=== PATIENT | female | born 1970 | race American Indian/Alaskan Native ===

== ENCOUNTER 2019-02-20 14:27 | Outpatient (CLI) | payer OTHER | END 2019-02-20 14:28 | disposition home or self-care (01) | LOC: LABHHL 14:27 | PROVIDERS: ATTEND Surgery | DX: C50.911 Malignant neoplasm of unspecified site of right female breast (principal); N60.91 Unspecified benign mammary dysplasia of right breast | CPT/HCPCS: 88305; 88341; 88342; 88361 ==

== ENCOUNTER 2019-03-11 10:47 | Outpatient (CLI) | payer OTHER ==
--- NOTE | 2019-03-13 08:44 | Magnetic Resonance Report ---
BILATERAL BREAST MR WITHOUT AND WITH GADOLINIUM INDICATION: Newly diagnosed right breast cancer. She underwent a right stereotactic biopsy of calcif ications on 02/20/2019. Pathology revealed invasive carcinoma, ER, VA positive and HER-2 negative. 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 COMPARISONS: 01/07/2019, 01/31/2019 and 02/20/2019 mammograms TECHNIQUE: Axial 1.0 mm T1 without, axial high-resolution 2.0 mm T2 and axial 1.0 mm dynamic vibrant high-resolution postcontrast T1 fat saturation sequences on a 1.5 Jelena magnet. Examination was perfo rmed with an 8-channel dedicated [place] breast coil. Postprocessing with CAD and subtraction was performed on an [employer] workstation. 19.0 cc of MultiHance was injected without incident for the contr ast portion of the exam. Consent was obtained prior to the administration of the contrast. FINDINGS: RIGHT BREAST: Marked background parenchymal enhancement. A biopsy clip is identified at 12:00 approxi mately 3 cm from the nipple and it correlates with the recently diagnosed cancer. An adjacent postbio psy seroma measures 2.0 x 2.5 x 1.0 cm. Numerous suspicious solid enhancing masses. Lesion 1 is an ov al enhancing mass in the lower outer quadrant 6.2 cm from the nipple measuring 2.2 x 1.4 x 1.0 cm. It demonstrates heterogeneous enhancement with mixed kinetics and 23% type III washout. Lesion 2 is an oval enhancing mass in the lower outer quadrant 4.9 cm from the nipple measuring 7 x 9 x 6 mm. Lesio n 3 is an oval enhancing mass in the lower outer quadrant 3.6 cm from the nipple measuring 9 x 7 x 5 mm. It demonstrates heterogeneous enhancement with mixed kinetics and 63% type III washout. Lesion 4 is an irregular enhancing mass in the lower inner quadrant 4.9 cm from the nipple measuring 12 x 9 x 8 mm. It demonstrates heterogeneous enhancement with mixed kinetics and 32% type III washout. Several additional smaller suspicious masses with a similar enhancement pattern as to all of these lesions. No suspicious right axillary or right internal mammary lymph nodes. LEFT BREAST: Marked background parenchymal enhancement. Numerous suspicious enhancing masses. An irre gular enhancing mass in the upper outer quadrant 4.2 cm from the nipple (lesion 5) correlates with th e area of previous surgical excision where there is spiculation and architectural distortion. This ma ss measures 3.1 x 2.2 x 1.3 cm and demonstrates heterogeneous enhancement with mixed kinetics and 21% type III washout. Lesion 6 is an irregular enhancing mass in the upper outer quadrant 2.7 cm from th e nipple measuring 2.5 x 2.0 x 2.1 cm. It demonstrates heterogeneous enhancement with mixed kinetics and 9% type III washout. Several additional smaller suspicious masses with similar enhancement charac teristics. No suspicious left axillary or left internal mammary lymph nodes. IMPRESSION: Numerous bilateral highly suspicious breast masses which would be amenable to MRI guided needle biopsy. No distinct MRI lesion is identified at the site of the recent right stereotactic biop sy which confirmed invasive cancer. No suspicious lymph nodes. FINAL ASSESSMENT: 6--Known Cancer Signer Name: Williams Ocampo MD Signed: 03/13/2019 8:40 AM Workstation Name: [id number]
== END 2019-03-11 10:48 | disposition home or self-care (01) ==
LOC: SPVIMAG 10:47
PROVIDERS: ATTEND Surgery
DX: C50.211 Malignant neoplasm of upper-inner quadrant of right female breast (principal); I10 Essential (primary) hypertension; Z90.710 Acquired absence of both cervix and uterus
CPT/HCPCS: A9577; C8908; 77049

== ENCOUNTER 2019-03-25 14:44 | Outpatient (CLI) | payer OTHER ==
--- NOTE | 2019-03-26 08:28 | Ultrasound Report ---
ULTRASOUND-GUIDED NEEDLE CORE BIOPSY 2 SITES LEFT BREAST WITH CLIP PLACEMENT CLINICAL: Numerous breast masses and history of surgical excision with at least 30 papillomas identif ied on the surgical path. Recent MRI demonstrated 2 numerous to count masses. FINDINGS: The procedure was explained to the patient and informed consent was obtained. Ultrasound demonstrated the previously identified masses and I chose to biopsy 2 of the larger masses at 12:00 2 cm from the nipple and at 2:00 5 cm from the nipple. A marker breast with a felt tip marker and a timeout was called. The skin was prepped with Chloro-Pre p and anesthetized with 1% lidocaine. Needle core biopsies were performed through small dermatotomies using ultrasound guidance, 2% lidocai ne with epinephrine for deep anesthesia and 14-gauge Achieve biopsy devices. 3 cores were obtained ea ch lesion and placed in formalin. A clip was deployed within each lesion. The patient tolerated the procedure well and there were no apparent convocations. Hemostasis was achi eved with minimal effort and sterile dressings were applied. Postprocedure mammogram was deferred since she is returning for biopsies of the opposite breast in a few days. She left the department in good condition and was given instructions for wound care and fol low-up. IMPRESSION: Uncomplicated ultrasound guided needle core biopsy with clip placement 2 sites left breas t. Signer Name: Williams Ocampo MD Signed: 03/26/2019 8:23 AM Workstation Name: [id number]
== END 2019-03-25 14:45 | disposition home or self-care (01) ==
LOC: SPVWC 14:44
PROVIDERS: ATTEND Surgery
DX: D24.2 Benign neoplasm of left breast (principal); I10 Essential (primary) hypertension; Z90.710 Acquired absence of both cervix and uterus; Z98.890 Other specified postprocedural states; Z79.899 Other long term (current) drug therapy
CPT/HCPCS: 19083; 19084; 88305; 88341; 88342; A4648

== ENCOUNTER 2019-04-01 14:29 | Outpatient (CLI) | payer MEDICARE ==
--- NOTE | 2019-04-02 08:15 | Ultrasound Report ---
ULTRASOUND-GUIDED NEEDLE CORE BIOPSY 2 SITES RIGHT BREAST WITH CLIP PLACEMENT CLINICAL: Recently diagnosed right breast cancer. She had a stereotactic biopsy of calcifications on 02/20/[address] Diggs with with pathology: Invasive carcinoma NOS [place] grade I/I II, ER/CO positive and HER-2 negative with Ki-67 5%. She also had sound guided biopsies of 2 left jose luis ast masses on 03/25/2019 with pathology: Papilloma and negative for atypia, in situ or invasive carcin shannan. She has a history of 2 numerous to count bilateral suspicious breast masses on MRI. FINDINGS: The procedure was explained to the patient and informed consent was obtained. Ultrasound demonstrated previously identified lesions at 8:00 5 cm from the nipple and at 9:00 4 cm f rom the nipple.. I marked the breast with a felt tip marker and a timeout was called. The skin was prepped with Chloro -Prep and anesthetized with 1% lidocaine. Needle core biopsies were performed through small dermatotomies using ultrasound guidance, 2% lidocai ne with epinephrine for deep anesthesia and 14-gauge Achieve biopsy devices. 3 cores were obtained f rom each lesion and placed in formalin. A clip was deployed within each lesion. The patient tolerated the procedure well and there were no apparent convocations. Hemostasis was achi eved with minimal effort and sterile dressings were applied. A post procedure mammogram demonstrated concordant clip deployment at both sites. She left the [facility] ment in good condition and was given instructions for wound care and follow-up. IMPRESSION: Uncomplicated ultrasound guided needle core biopsy with clip placement [address] Signer Name: Williams Ocampo MD Signed: 04/02/2019 8:11 AM Workstation Name: [id number]
--- NOTE | 2019-04-02 08:29 | Mammography Report ---
RIGHT DIGITAL DIAGNOSTIC MAMMOGRAM CLINICAL: For clip placement after ultrasound either needle biopsies at 2 sites. COMPARISON: 02/20/2019 FINDINGS: Biopsy clips are identified at 8:00 (Site A) and at 9:00 (Site B) and correspond to the bio psied most recently biopsied lesions. A right retroareolar clip at 12:00 corresponds to the recently diagnosed cancer. IMPRESSION: Concordant clip deployment. Signer Name: Williams Ocampo MD Signed: 04/02/2019 8:25 AM Workstation Name: [id number]
--- NOTE | 2019-04-02 08:30 | Ultrasound Report ---
ULTRASOUND-GUIDED NEEDLE CORE BIOPSY 2 SITES RIGHT BREAST WITH CLIP PLACEMENT CLINICAL: Recently diagnosed right breast cancer. She had a stereotactic biopsy of calcifications on 02/20/[address] Diggs with with pathology: Invasive carcinoma NOS Dane grade I/I II, ER/WA positive and HER-2 negative with Ki-67 5%. She also had sound guided biopsies of 2 left jose luis ast masses on 03/25/2019 with pathology: Papilloma and negative for atypia, in situ or invasive carcin shannan. She has a history of 2 numerous to count bilateral suspicious breast masses on MRI. FINDINGS: The procedure was explained to the patient and informed consent was obtained. Ultrasound demonstrated previously identified lesions at 8:00 5 cm from the nipple and at 9:00 4 cm f rom the nipple.. I marked the breast with a felt tip marker and a timeout was called. The skin was prepped with Chloro -Prep and anesthetized with 1% lidocaine. Needle core biopsies were performed through small dermatotomies using ultrasound guidance, 2% lidocai ne with epinephrine for deep anesthesia and 14-gauge Achieve biopsy devices. 3 cores were obtained f rom each lesion and placed in formalin. A clip was deployed within each lesion. The patient tolerated the procedure well and there were no apparent convocations. Hemostasis was achi eved with minimal effort and sterile dressings were applied. A post procedure mammogram demonstrated concordant clip deployment at both sites. She left the [facility] ment in good condition and was given instructions for wound care and follow-up. IMPRESSION: Uncomplicated ultrasound guided needle core biopsy with clip placement [address] Signer Name: Williams Ocampo MD Signed: 04/02/2019 8:11 AM Workstation Name: [id number]
== END 2019-04-01 14:30 | disposition home or self-care (01) ==
LOC: SPVWC 14:29
PROVIDERS: ATTEND Surgery
DX: D24.1 Benign neoplasm of right breast (principal); I10 Essential (primary) hypertension; Z90.710 Acquired absence of both cervix and uterus; Z98.890 Other specified postprocedural states; Z79.899 Other long term (current) drug therapy; Z88.8 Allergy status to other drugs, medicaments and biological substances
CPT/HCPCS: 19083; 19084; 77066; 88305; 88342; A4648

== ENCOUNTER 2019-06-11 09:07 | Inpatient (IN) | payer MEDICARE, OTHER ==
--- NOTE | 2019-06-11 07:23 | Anesthesia Day of Surgery ---
Anesthesia Day of Surgery - Day of Surgery Patient Examined: Yes Patient H&P Reviewed: Yes Patient is NPO: Yes
--- NOTE | 2019-06-11 07:46 | Anesthesia Consultation ---
Anesthesia Consult and Med Hx Date of service: 06/11/19 - Airway Anesthetic Teeth Evaluation: Good ROM Head & Neck: Adequate Mental/Hyoid Distance: Adequate Mallampati Class: Class II Intubation Access Assessment: Probably Good - Pre-Operative Health Status ASA Pre-Surgery Classification: ASA2 Proposed Anesthetic Plan: General Nerve Block: PEC - Pulmonary Hx Smoking: No Hx Sleep Apnea: No - Cardiovascular System Hx Hypertension: Yes (2018) - Central Nervous System Hx Psychiatric Problems: No - Hematic Hx Anemia: Yes (PREVIOUSLY WITH HEAVY MENSES, CORRECTED) - Other Systems Hx Alcohol Use: Yes (RARE/SPECIAL OCCA) Hx Substance Use: No Hx Cancer: Yes (Breast CA)
[2019-06-11] MEDS: LACTATED RINGERS 1,000 ML IV SCH (08:30)
[~2019-06-11 09:07] MED LIST: ACETAMINOPHEN 325 MG TAB PO NR; BACITRACIN 50,000 UNIT VIAL ONE; BACTERIOSTATIC SODIUM CHLORIDE 0.9% 30 ML VIAL INFILTRATI ONE; CELECOXIB 200 MG CAP PO NR; GABAPENTIN 300 MG CAP PO NR; GENTAMICIN 40 MG/ML VIAL 2 ML ONE; HYDROmorphone 1 MG/1 ML INJ IV PRN; METHYLENE BLUE 50 MG/10 ML AMP ONE; MIDAZOLAM 2 MG/2 ML INJ IV NR; ONDANSETRON 4 MG/2 ML INJ IV PRN; SODIUM CHLORIDE 0.9% 1000 ML 1,000 ML ONE; SODIUM CHLORIDE P/F VIAL 10 ML 20 ML ONE; ceFAZolin 1 GM VIAL ONE; ceFAZolin/Water 2 GM/20 ML 2 GM/20 ML SYRINGE IV NR; fentaNYL 100 MCG/2 ML INJ IV NR; fentaNYL 100 MCG/2 ML INJ IV PRN
[2019-06-11] MEDS ORDERED: HYDROmorphone 1 MG/1 ML INJ ONE (09:41)
[2019-06-11] MEDS ORDERED: PROPOFOL 200 MG/20 ML VIAL IV ONE (09:41)
[2019-06-11] MEDS ORDERED: LIDOCAINE MPF (2%) 20 MG/1 ML VIAL 5 ML ONE (09:46)
[2019-06-11] MEDS ORDERED: ROCURONIUM 50 MG/5 ML INJ IV ONE ×2 (09:46)
[2019-06-11] MEDS ORDERED: BUPIVACAINE-EPINEPHRINE/PF 0.5%-1:200,000 (30 ML) VIAL INFILTRATI ONE (09:48)
[2019-06-11] MEDS ORDERED: SODIUM CHLORIDE 0.9% IRR 1,500 ML BOTTLE IR ONE (12:30)
[2019-06-11] MEDS ORDERED: WATER FOR IRRIG STERILE 1,500 ML BOTTLE IR ONE (12:46)
[2019-06-11] MEDS ORDERED: GENTAMICIN 40 MG/ML VIAL 2 ML IV ONE (12:47)
[2019-06-11] MEDS ORDERED: BACITRACIN 50,000 UNIT VIAL IR ONE (12:48)
[2019-06-11] MEDS ORDERED: ceFAZolin 1 GM VIAL IR ONE (12:49)
[2019-06-11] MEDS ORDERED: METHYLENE BLUE 50 MG/10 ML AMP IRRIGATION ONE (12:50)
--- NOTE | 2019-06-11 13:16 | XRay Report ---
SPECIMEN RADIOGRAPH LEFT BREAST INDICATION: LEFT BREAST CA. COMPARISON: 04/01/2019 mammogram FINDINGS/IMPRESSION: A spiculated mass and 2 biopsy clips are identified within the whole breast specimen. More detail, pl ease refer to the operative report. Signer Name: Williams Ocampo MD Signed: 06/11/2019 1:12 PM Workstation Name: [id number]
[2019-06-11] MEDS ORDERED: ONDANSETRON 4 MG/2 ML INJ ONE (13:34)
[2019-06-11] MEDS ORDERED: LACTATED RINGERS 1,000 ML ONE (13:41)
--- NOTE | 2019-06-11 14:37 | Mammography Report ---
SPECIMEN RADIOGRAPH RIGHT BREAST INDICATION: POST EXC BX. COMPARISON: 04/01/2019 mammogram FINDINGS/IMPRESSION: 3 biopsy clips are identified within the whole breast specimen. Signer Name: Williams Ocampo MD Signed: 06/11/2019 2:33 PM Workstation Name: [id number]
[2019-06-11] MEDS ORDERED: ceFAZolin 1 GM VIAL ONE (15:01)
--- NOTE | 2019-06-11 16:11 | Operative Report ---
Operative Report Operative Report: Operative Report: Date of Service: May 12, 2019 Preoperative diagnosis: Right breast cancer of the upper outer quadrant and bilateral breast papillomas Postoperative diagnosis: Same Procedure: Right total mastectomy with sentinel lymph node biopsy and left total mastectomy Surgeon: Monica Diggs M.D. Cigar Roller: Jazmín Stoll M.D. Anesthesia: Gen. Findings: Right breast clips x3 present within right total mastectomy and left total mastectomy clips x3, x1 right SLN and negative for malignancy Complications: None Drains: per plastic surgery Estimated blood loss: 100-150 cc Disposition: in OR for bilateral tissue clamp truck driver placement by plastic surgery Indications for operative procedure: This is a 53-year-old lady with newly diagnosed right breast cancer of the upper outer quadrant IDCA grade 1 [id number] ER positive and multiple bilateral breast papillomas. Recent right stereotactic biopsy recently performed with findings of invasive carcinoma. 2 left breast and 2 right breast biopsies performed as well with findings of papillomas and breast MRI with too numerous to count bilateral breast masses probable for papillomas. She had a prior left breast excisional biopsy performed by Dr. Mccann with over 30 papillomas excised. Recommendations were to proceed with a bilateral mastectomy given right breast cancer and both breast with too numerous to count papillomas- papillomas with increase breast cancer risk. Other option of right partial mastectomy with SLNB and close surveillance was discussed as well and she wished to proceed with a bilateral mastectomy and immediate bilateral tissue clamp truck driver placement. She met with medical oncology and radiation oncology prior to surgery as well with recommendations of proceeding with a bilateral mastectomy. She declined genetic testing. She wished to proceed with the above procedure. Procedure in detail: Anesthesia placed bilateral pectoral muscle block prior to going to the operating room. The patient was taken to the operating room and was placed supine. Gen. anesthesia was administered. The right nipple was injected with radioisotope. Bilateral breast and axilla were prepped and draped in the normal sterile operative fashion. Timeout was performed. Typical mastectomy incision marking were made. Attention was then taken towards the left breast. A skin incision was made with a 10 blade knife and dissection taken down to the subcutaneous tissues. First began raising of the superior flap to the level of the clavicle and posteriorly to the pectoralis muscle. Then proceeded with raising of the medial flap to the level of the sternum and posteriorly to the pectoralis muscle. Followed by raisi ng of the lateral flap to the level of the latissimus dorsi muscle and taken down posteriorly. Then proceeded with raising of the inferior flap to the level of the inframammary fold taken posterior to the pectoralis muscle. The mastectomy/breast was removed from the pectoralis muscle without incident. The specimen was appropriately marked and sent to radiology with findings of 2 breast clips present and sent to pathology. Hemostasis was noted. The chest wall was irrigated and suctioned. Hemostasis was obtained. Attention was then taken towards the right breast. A gamma probe was inserted into the axilla to identify the sentinel lymph node location with uptake present. A skin incision was made with a 10 blade knife and dissection taken down to the subcutaneous tissues. First began raising of the superior flap to the level of the clavicle and posteriorly to the pectoralis muscle. Then proceeded with raising of the medial flap to the level of the sternum and posteriorly to the pectoralis muscle. Followed by raising of the lateral flap to the level of the latissimus dorsi muscle and taken down posteriorly. The gamma probe was inserted into the axilla. The axillary fascia was opened and 1 SLN was identified and then sent to pathology. All remaining counts were less than 10% of the highest count. Then proceeded with raising of the inferior flap to the level of the inframammary fold taken posterior to the pectoralis muscle. The mastectomy/breast was removed from the pectoralis muscle without incident. The specimen was appropriately marked and sent to radiology with findings of 3 breast clips present and sent to pathology. Hemostasis was noted. The chest wall was irrigated and suctioned. Hemostasis was obtained. She tolerated surgery very well and plastic surgery then proceeded with bilateral tissue clamp truck driver placement.
[2019-06-11] MEDS ORDERED: diphenhydrAMINE 25 MG CAP PO PRN (18:52)
[2019-06-11] MEDS ORDERED: oxyCODONE /ACETAMINOPHEN 5-325MG TAB PO PRN (18:52)
[2019-06-11] MEDS ORDERED: ACETAMINOPHEN 325 MG TAB PO PRN (18:52)
[2019-06-11] MEDS ORDERED: METOCLOPRAMIDE 10 MG TAB PO PRN (18:52)
[2019-06-11] MEDS ORDERED: LACTATED RINGERS 1,000 ML IV SCH (19:00)
--- NOTE | 2019-06-11 19:34 | Operative Report ---
Operative Report Operative Report: Plastic Surgery Operative Note Surgeon: Daylin Flynn MD Special Education Associate: KYE Lacey Preoperative Diagnosis: Acquired absence of the bilateral breasts; Malignant neoplasm of the left breast Postoperative Diagnosis: Same Procedure: Bilateral breast reconstruction with tissue diesel fitter mechanic placement and FlexHD acellular dermal matrix. Anesthesia: General EBL: 50cc Indications: This patient is a 49 year old AAF who is scheduled for a left mastectomy and desires a bilateral procedure so as to reduce risk for future malignancy. She is opting for reconstruction and after review of her options we determined that a tissue diesel fitter mechanic placement with FlexHD dermal scaffold was her best option. We discussed her options including autologous tissue transfer and she was interested in the least complex reconstructive route possible. So we planned for tissue diesel fitter mechanic placement with the use of acellular dermal matrix. The benefits as well as the risks of the procedure were discussed with the patient, including but not limited to infection, bleeding, hematoma, seroma, wound dehiscence, implant rupture, need for further surgery including planned stages and additional reconstruction. The patient understands and accepts these risks and desires to proceed with surgery. Procedure: After review of pertinent history and physical exam findings the patient was brought into the operating room and placed supine on the OR table. After induction of adequate general anesthesia the entire chest was prepped and draped in the usual sterile surgical fashion. To begin, Dr. Monica Diggs performed the mastectomies and this procedure is dictated under a separate operative note. When this was completed, the breast reconstruction was started on the right breast. Using electrocautery we dissected a submuscular pocket behind pectoralis muscle to accommodate the tissue diesel fitter mechanic. The pocket was thoroughly irrigated with triple antibiotic solution and we began creating the inframammary border using Flex HD perforated contoured, a total size of [id number], SN [id number]. The inferior aspect of the Flex HD was secured to the chest fascia using 2-0 PDS suture. This was followed by placement of the tissue diesel fitter mechanic, [place] Siltex 600cc (SN [id number]), in the submuscular pocket. Following this inferior border of the pectoralis fascia was secured to the superior border of the FlexHD also using 2-0 PDS suture. The same exact procedure was repeated on the left side (FlexHD: [id number]; [place]: [id number]). 19 [place] OLI drains were placed bilaterally and secured using 2-0 Nylon sutures. We then began a 3-layered closure using 3-0 Monoderm Quill [id number] suture. This was followed by Dermabond glue and then Telfa with tegaderm followed by bra binder. Patient was then awakened from general anesthesia and transferred to the recovery room instable condition.
[2019-06-11] MEDS: ONDANSETRON 4 MG/2 ML INJ IV PRN (20:55)
[2019-06-11] MEDS: DOCUSATE SODIUM 100 MG CAP PO SCH (22:39)
[2019-06-11] MEDS: MORPHINE 2 MG/1 ML INJ IV PRN (22:41)
--- NOTE | 2019-06-11 23:33 | Post Anesthesia Evaluation ---
- Post Anesthesia Evaluation Patient Participated: Yes Airway Patent: Yes Stable Respiratory Function: Yes Nausea/Vomiting: No Temp > 96.8F: Yes Pain Manageable: Yes Adequeate Hydration: Yes Anesthesia Complications: No Block Receding Appropriately: Not Applicable Patient on Ventilator: No
[2019-06-12] MEDS: LACTATED RINGERS 1,000 ML IV SCH (04:17)
[2019-06-12] MEDS: MORPHINE 2 MG/1 ML INJ IV PRN (06:03)
--- NOTE | 2019-06-12 09:28 | Operative Report ---
Operative Report Operative Report: Plastic Surgery Progress Patient did well overnight. She is currently OOB to chair eating breakfast. Reports some tightness across her chest but otherwise no major discomfort. She has spontaneously voided and denies nausea, sob or dizziness. Exam: Binder and BULL wrap in place; dressings clean dry and intact. Bilateral OLI drains with serosanguineous output, appropriate. No evidence of hematoma or seroma collection. This appeared viable and well-perfused. Assessment: Postoperative day #1 status post bilateral mastectomy with immediate reconstruction using tissue expanders and Flex HD. Plan: 1. Blood pressure management: Patient will be placed back on her regular amlodipine 5 mg daily. Lopressor as needed and will be ordered as well. 2. For muscle tightness will order a stat dose of Robaxin IV. Patient has a prescription for this medication already. 3. Plan is for discharge later this evening. 4. Follow up next week with me in clinic as scheduled.
--- NOTE | 2019-06-12 09:33 | Progress Note ---
Subjective Date of service: 06/12/19 Principal diagnosis: Acquired absence of the bilateral breasts Interval history: Plastic Surgery Progress Patient did well overnight. She is currently OOB to chair eating breakfast. Reports some tightness across her chest but otherwise no major discomfort. She has spontaneously voided and denies nausea, sob or dizziness. Exam: Binder and BULL wrap in place; dressings clean dry and intact. Bilateral OLI drains with serosanguineous output, appropriate. No evidence of hematoma or seroma collection. This appeared viable and well-perfused. Assessment: Postoperative day #1 status post bilateral mastectomy with immediate reconstruction using tissue expanders and Flex HD. Plan: 1. Blood pressure management: Patient will be placed back on her regular amlodipine 5 mg daily. Lopressor as needed and will be ordered as well. 2. For muscle tightness will order a stat dose of Robaxin IV. Patient has a prescription for this medication already. 3. Plan is for discharge later this evening. 4. Follow up next week with me in clinic as scheduled. Objective - Constitutional Vitals: Vital Signs - 12hr 06/11/19 06/11/19 06/12/19 22:41 23:55 04:16 Temperature 99.1 F 98.5 F Pulse Rate 97 H 101 H Respiratory 20 20 20 Rate Blood Pressure 143/93 148/92 O2 Sat by Pulse 96 94 Oximetry 06/12/19 06:03 Temperature Pulse Rate Respiratory 20 Rate Blood Pressure O2 Sat by Pulse Oximetry Medications & Allergies - Medications Allergies/Adverse Reactions: Allergies fluconazole [From Diflucan] Allergy (Verified 06/10/19 12:24) Rash Home Medications: Home Medications Medication Instructions Recorded Confirmed Last Taken Type Amlodipine Besylate [Norvasc] 5 mg PO QDAY 05/07/19 06/11/19 06/11/19 06:00 History Cholecalciferol (Vitamin D3) 2,000 unit PO QDAY 05/07/19 06/11/19 06/10/19 09:00 History [Vitamin D3 2,000 UNIT CAP] Fexofenadine HCl [Mariya Allergy] 60 mg PO BID 06/04/19 06/11/19 06/10/19 09:00 History Active Medications: Generic Name Dose Route Start Last Admin Trade Name Freq PRN Reason Stop Dose Admin Acetaminophen 650 mg 06/11/19 18:52 Tylenol PO Q6H PRN Pain MILD(1-3)/Fever >100.5/MITCHELL Diphenhydramine HCl 25 mg 06/11/19 18:52 Benadryl PO Q8H PRN Itching Docusate Sodium 100 mg 06/11/19 22:00 06/11/19 22:39 Colace PO Not Given BID RONY Lactated Ringer's 1,000 mls @ 125 mls/hr 06/11/19 08:00 06/12/19 04:17 Lactated Ringers IV 125 mls/hr DIRECT RONY Administration Lactated Ringer's 1,000 mls @ 125 mls/hr 06/11/19 19:00 Lactated Ringers IV DIRECT RONY Methocarbamol 1,000 mg/ Sodium 260 mls @ 250 mls/hr 06/12/19 09:28 Chloride IV 06/12/19 10:30 Q8HR STA Metoclopramide HCl 10 mg 06/11/19 18:52 Reglan PO Q6H PRN Nausea And Vomiting Metoprolol Tartrate 5 mg 06/12/19 09:29 Lopressor IV Q6HR PRN Systolic BP>140; HR>100 Morphine Sulfate 2 mg 06/11/19 18:55 06/12/19 06:03 Morphine IV 2 mg Q4H PRN Administration Pain, Moderate (4-6) Ondansetron HCl 4 mg 06/11/19 18:52 06/11/19 20:55 Zofran IV 4 mg Q8H PRN Administration N/V unrelieved by Reglan Oxycodone/Acetaminophen 2 tab 06/11/19 18:58 Percocet 5/325 PO Q6H PRN Pain, Moderate (4-6) Sodium Chloride 10 ml 06/11/19 18:52 Sodium Chloride Flush Syringe 10 Ml IV PRN PRN LINE FLUSH
[2019-06-12] MEDS ORDERED: ENOXAPARIN 40 MG/0.4 ML INJ SUB-Q SCH (10:00)
[2019-06-12] MEDS: oxyCODONE /ACETAMINOPHEN 5-325MG TAB PO PRN ×3 (10:08→23:19)
[2019-06-12] MEDS: METOPROLOL TARTRATE 5 MG/5 ML INJ IV PRN ×2 (12:03→18:36)
[2019-06-12] MEDS: methOCARBAMOL 1,000 MG in SODIUM CHLORIDE 0.9% 250ML 250 ML IV SCH ×2 (12:14→20:29)
[2019-06-12] MEDS: ONDANSETRON 4 MG/2 ML INJ IV PRN (14:49)
[2019-06-12] MEDS: DOCUSATE SODIUM 100 MG CAP PO SCH (21:30)
[2019-06-13] MEDS: METOPROLOL TARTRATE 5 MG/5 ML INJ IV PRN (00:25)
[2019-06-13] MEDS: methOCARBAMOL 1,000 MG in SODIUM CHLORIDE 0.9% 250ML 250 ML IV SCH (04:28)
[2019-06-13] MEDS: oxyCODONE /ACETAMINOPHEN 5-325MG TAB PO PRN (12:40)
[2019-06-13] MEDS: DOCUSATE SODIUM 100 MG CAP PO SCH (12:42)
[2019-06-13 18:24] VITALS: BP 147/86
== END 2019-06-13 18:15 | disposition home or self-care (01) | DRG 581 ==
LOC: OR 09:07 → OB 18:53
PROVIDERS: ADMIT Plastic Surgery; ATTEND Plastic Surgery
PROC: 0HTV0ZZ Resection of Bilateral Breast, Open Approach (ICD-10-PCS; principal; 2019-06-11)
PROC: 07B50ZX Excision of Right Axillary Lymphatic, Open Approach, Diagnostic (ICD-10-PCS; 2019-06-11)
PROC: 0HHV0NZ Insertion of Tissue Expander into Bilateral Breast, Open Approach (ICD-10-PCS; 2019-06-11)
PROC: 0KXF0Z5 Transfer Right Trunk Muscle, Latissimus Dorsi Myocutaneous Flap, Open Approach (ICD-10-PCS; 2019-06-11)
PROC: 0KXG0Z5 Transfer Left Trunk Muscle, Latissimus Dorsi Myocutaneous Flap, Open Approach (ICD-10-PCS; 2019-06-11)
DX: C50.411 Malignant neoplasm of upper-outer quadrant of right female breast (principal); N60.82 Other benign mammary dysplasias of left breast; N60.81 Other benign mammary dysplasias of right breast; I10 Essential (primary) hypertension; C50.412 Malignant neoplasm of upper-outer quadrant of left female breast; Z79.899 Other long term (current) drug therapy; Z90.710 Acquired absence of both cervix and uterus; Z80.3 Family history of malignant neoplasm of breast; Z80.8 Family history of malignant neoplasm of other organs or systems; Z72.89 Other problems related to lifestyle
CPT/HCPCS: 64450; 76098; 88307; 88309; 88331; 88333; 88341; 88342; G0378; C1789; J0690; J1170; J1580; J2250; J2270; J2405; J2704; J2800; J3010; J7030; J7050; J7120; Q4128; Q9968